=== PATIENT | female | born 1975 | race Two or more races ===

== ENCOUNTER 2020-11-28 13:51 | Emergency (ER) | payer MEDICAID, OTHER ==
[~2020-11-28] VITALS: Ht 167.6 cm; Wt 86.2 kg
[2020-11-28 14:00] VITALS: BP 126/83
[2020-11-28] MEDS ORDERED: KETOROLAC TROMETH 60MG/2ML VIAL IM ONE (16:00)
== END 2020-11-28 16:46 | disposition home or self-care (01) ==
LOC: ER 13:51
DX: M51.36 Other intervertebral disc degeneration, lumbar region (principal); K04.7 Periapical abscess without sinus; F17.210 Nicotine dependence, cigarettes, uncomplicated; J45.909 Unspecified asthma, uncomplicated
CPT/HCPCS: 72100; 96372; 99283; J1885